=== PATIENT | male | born 1980 ===

== ENCOUNTER 2017-12-11 11:50 | Emergency (ER) | payer OTHER ==
[~2017-12-11] VITALS: Ht 172.7 cm; Wt 65.8 kg
== END 2017-12-11 15:56 | disposition home or self-care (01) ==
LOC: ER 11:50
DX: S62.396A Other fracture of fifth metacarpal bone, right hand, initial encounter for closed fracture (principal); W22.8XXA Striking against or struck by other objects, initial encounter; Y93.89 Activity, other specified; Y92.89 Other specified places as the place of occurrence of the external cause; Y99.8 Other external cause status